=== PATIENT | female | born 1955 | race Caucasian/White ===

== ENCOUNTER → 2018-10-18 | Outpatient (CLI) | payer BC | LOC: MAMMO 09:03 | DX: Z12.31 Encounter for screening mammogram for malignant neoplasm of breast (principal) ==

== ENCOUNTER → 2021-08-12 | Outpatient (CLI) | payer BC | LOC: RAD 15:35 | DX: R10.9 Unspecified abdominal pain (principal) ==

== ENCOUNTER → 2021-08-12 | Outpatient (REF) | LOC: LAB 14:33 | DX: Z00.00 Encounter for general adult medical examination without abnormal findings (principal); E78.5 Hyperlipidemia, unspecified; E55.9 Vitamin D deficiency, unspecified ==

== ENCOUNTER → 2021-10-16 | Day surgery (SDC) | payer BC | END | disposition home or self-care (01) | LOC: MSO 08:08 | DX: Z12.11 Encounter for screening for malignant neoplasm of colon (principal); D12.8 Benign neoplasm of rectum; M19.90 Unspecified osteoarthritis, unspecified site; G43.909 Migraine, unspecified, not intractable, without status migrainosus; E78.5 Hyperlipidemia, unspecified; F41.9 Anxiety disorder, unspecified; F32.9 Major depressive disorder, single episode, unspecified; Z80.0 Family history of malignant neoplasm of digestive organs; Z83.71 Family history of colonic polyps | CPT/HCPCS: 00811; J2704; J7120 ==

== ENCOUNTER → 2023-08-24 | Outpatient (CLI) | payer MEDICARE, BC ==
[2023-08-24 18:06] LABS: BASO # 0.03 K/mm3 (0.02-0.10); EOS # 0.04 K/mm3 (0.04-0.40); EOS % 0.6 % (1.0-5.0); HEMATOCRIT 44.2 % (37.0-47.0); HEMOGLOBIN 14.5 g/dL (12.5-16.0); LYMPH# 2.27 K/mm3 (1.50-4.00); MEAN CELL VOLUME 90 fl (78-100); MEAN CORPUSCULAR HEMOGLOBIN 30 pg (27-31); MEAN CORPUSCULAR HGB CONC 33 g/dL (33-37); MEAN PLATELET VOLUME 9.9 fl (7.4-10.4); MONO # 0.32 K/mm3 (0.20-0.80); NEU # 4.35 K/mm3 (1.40-6.50); PLATELET COUNT 237 K/mm3 (130-400); RED CELL DISTRIBUTION WIDTH 12.3 % (11.5-14.5)
[2023-08-24 18:14] LABS: POTASSIUM 4.1 mmol/L (3.5-5.1)
[2023-08-24 18:15] LABS: CALCIUM 9.1 mg/dL (8.3-10.5)
[2023-08-24 18:17] LABS: TOTAL PROTEIN 6.5 g/dL (6.2-8.1)
[2023-08-24 18:18] LABS: TOTAL BILIRUBIN 0.6 mg/dL (0.2-1.2)
[2023-08-28 16:09] LABS: VITAMIN B1 114.1 nmol/L (())
[2023-08-31 00:07] LABS: VITAMIN A 39.7 ug/dL (())
== END ==
LOC: LAB 17:35
PROVIDERS: Family Medicine
DX: Z00.00 Encounter for general adult medical examination without abnormal findings (principal); E78.5 Hyperlipidemia, unspecified; F41.9 Anxiety disorder, unspecified; F32.9 Major depressive disorder, single episode, unspecified; G43.009 Migraine without aura, not intractable, without status migrainosus; M19.90 Unspecified osteoarthritis, unspecified site; E55.9 Vitamin D deficiency, unspecified; R53.83 Other fatigue; R10.9 Unspecified abdominal pain

== ENCOUNTER → 2024-10-16 | Outpatient (CLI) | payer MEDICARE, BC | LOC: MAMMO 08:50 | DX: Z12.31 Encounter for screening mammogram for malignant neoplasm of breast (principal) ==

== ENCOUNTER → 2024-11-28 | Outpatient (CLI) | payer MEDICARE, BC ==
[2024-11-28 11:02] LABS: BASO # 0.03 K/mm3 (0.02-0.10); EOS # 0.05 K/mm3 (0.04-0.40); EOS % 0.5 % (1.0-5.0); HEMATOCRIT 44.4 % (37.0-47.0); HEMOGLOBIN 14.5 g/dL (12.5-16.0); LYMPH# 1.83 K/mm3 (1.50-4.00); MEAN CELL VOLUME 90 fl (78-100); MEAN CORPUSCULAR HEMOGLOBIN 29 pg (27-31); MEAN CORPUSCULAR HGB CONC 33 g/dL (33-37); MEAN PLATELET VOLUME 8.3 fl (7.4-10.4); MONO # 0.44 K/mm3 (0.20-0.80); NEU # 6.73 K/mm3 (1.40-6.50); PLATELET COUNT 424 K/mm3 (130-400); RED BLOOD COUNT 4.95 M/mm3 (4.10-5.30); RED CELL DISTRIBUTION WIDTH 11.9 % (11.5-14.5); WHITE BLOOD COUNT 9.1 K/mm3 (4.8-10.8)
[2024-11-28 11:17] LABS: ALBUMIN 3.9 g/dL (3.4-4.8)
[2024-11-28 11:18] LABS: CALCIUM 9.5 mg/dL (8.3-10.5)
[2024-11-28 11:19] LABS: TOTAL PROTEIN 6.9 g/dL (6.2-8.1)
[2024-11-28 11:21] LABS: TOTAL BILIRUBIN 0.4 mg/dL (0.2-1.2)
== END ==
LOC: LAB 10:46
PROVIDERS: Family Medicine
DX: I10 Essential (primary) hypertension (principal); E78.5 Hyperlipidemia, unspecified; E55.9 Vitamin D deficiency, unspecified